=== PATIENT | male | born 1990 | race Caucasian/White ===

== ENCOUNTER 2025-06-26 20:33 | Emergency (ER) | payer BC ==
[~2025-06-26] VITALS: Ht 177.8 cm; Wt 102.1 kg
[2025-06-26 20:40] VITALS: BP 153/98; PULSE 64; RESP 18; TEMP 98.9; O2SAT 97
[2025-06-26] MEDS ORDERED: AUGMENTIN 875MG ONE (21:32)
[2025-06-26] MEDS ORDERED: TORADOL ONE (21:32)
[2025-06-26] MEDS ORDERED: NORCO 5MG PO ONE (21:32)
[2025-06-26] MEDS ORDERED: ZOFRAN ODT ONE (21:32)
[2025-06-26] MEDS: AUGMENTIN 875MG PO STA (21:38)
[2025-06-26] MEDS: NORCO 5MG PO STA (21:38)
[2025-06-26] MEDS: TORADOL IM STA (21:38)
[2025-06-26] MEDS: ZOFRAN ODT SL STA (21:38)
[2025-06-26 21:41] VITALS: BP 146/76; PULSE 62; RESP 18; O2SAT 99
== END 2025-06-26 21:45 | disposition home or self-care (01) ==
LOC: ER 20:33
DX: S01.511A Laceration without foreign body of lip, initial encounter (principal); S03.2XXA Dislocation of tooth, initial encounter; X58.XXXA Exposure to other specified factors, initial encounter; Y93.89 Activity, other specified; Y92.89 Other specified places as the place of occurrence of the external cause; Y99.8 Other external cause status
CPT/HCPCS: 99284; 12014; 96372; J1885